=== PATIENT | female | born 1940 | race Caucasian/White ===

== ENCOUNTER 2018-11-28 13:39 | Emergency (ER) | payer MEDICARE, BC ==
[~2018-11-28] VITALS: Ht 152.4 cm; Wt 36.3 kg
[2018-11-28] MEDS ORDERED: SERT25TA PO (13:55)
[2018-11-28] MEDS ORDERED: LORA0.5T PO (13:55)
[2018-11-28] MEDS ORDERED: ROSU5TAB PO (13:55)
[2018-11-28] MEDS ORDERED: LEVO100T PO (13:55)
[2018-11-28] MEDS ORDERED: MEMA10TA PO (13:55)
--- NOTE | 2018-11-28 14:10 | NUR ---
A CALL FROM PT'S SON AND HE SPOKE WITH Patient starting to get agitated, restless walking to nurses station. orders to get a 1:1 sitter at this time. Salesperson [employer] called to be notified.
--- NOTE | 2018-11-28 14:15 | NUR ---
Security staff at bedside for 1:1 sitter.
--- NOTE | 2018-11-28 14:45 | NUR ---
Patient refusing to be on the monitor stating "nothing wrong with me" "I regret coming to the hospital". notified.
[2018-11-28 14:56] LABS: BASOPHILS # (AUTO) 0.1 K/uL (0.0-8.0); BASOPHILS % (AUTO) 1.2 % (0.0-2.0); EOSINOPHILS # (AUTO) 0.2 K/uL (0.0-0.7); EOSINOPHILS % (AUTO) 2.1 % (0.0-7.0); HEMATOCRIT 38.9 % (31.2-41.9); HEMOGLOBIN 12.8 g/dL (10.9-14.3); LYMPHOCYTES # (AUTO) 2.3 K/uL (20.0-40.0); LYMPHOCYTES % (AUTO) 26.9 % (20.5-51.5); MEAN CORPUSCULAR HEMOGLOBIN 29.4 uug (24.7-32.8); MEAN CORPUSCULAR HGB CONC 33 g/dL (32.3-35.6); MEAN CORPUSCULAR VOLUME 89.7 fL (75.5-95.3); MONOCYTES # (AUTO) 0.6 K/uL (2.0-10.0); MONOCYTES % (AUTO) 6.6 % (0.0-11.0); NEUTROPHILS # (AUTO) 5.5 K/uL (1.8-8.9); NEUTROPHILS % (AUTO) 63.2 % (38.5-71.5); PLATELET COUNT (AUTO) 262 K/uL (179-408); RED BLOOD CELL COUNT(AUTO) 4.34 MIL/uL (3.63-4.92); WHITE BLOOD COUNT (AUTO) 8.7 K/uL (3.8-11.8)
--- NOTE | 2018-11-28 15:08 | NUR ---
called pt son kayla cagle at [phone] per pt and er md request.
[2018-11-28 15:16] LABS: BILIRUBIN,DIRECT 0.1 mg/dL (0.0-0.2); BILIRUBIN,TOTAL 0.3 mg/dL (0.2-1.0); CREATININE 0.6 mg/dL (0.6-1.3); TOTAL PROTEIN, SERUM 6.8 g/dL (6.4-8.2)
[2018-11-28 15:19] LABS: POTASSIUM 3.6 mmol/L (3.5-5.1)
[2018-11-28 15:23] LABS: MAGNESIUM 2.2 mg/dL (1.8-2.4)
--- NOTE | 2018-11-28 15:37 | NUR ---
At this time patient refusing to provide urine sample, notified.
[2018-11-28 15:43] LABS: CREATINE KINASE, TOTAL 56 U/L (26-192); ETHANOL < 3 MG/DL (0-0); THYROID STIMULATING HORMONE 0.067 mIU/mL (0.358-3.740)
[2018-11-28 15:58] LABS: *BILIRUBIN,URIN NEGATIVE (NEGATIVE); *BLOOD, URINE NEGATIVE (NEGATIVE); *COLOR,URINE YELLOW (YELLOW); *KETONES,URINE TRACE (NEGATIVE); *UROBILINOGEN,URINE 0.2 E.U./dl (NORMAL); LEUKOCYTE ESTERASE ,URINE 1+ (NEGATIVE); NITRITE, URINE NEGATIVE (NEGATIVE); PH,URINE 6.5 (5.0-8.0); UGLUCOSE NEGATIVE (NEGATIVE)
[2018-11-28 16:10] LABS: *CLARITY,URINE SLIGHTLY HAZY (CLEAR)
[2018-11-28 16:11] LABS: *AMPHETAMINE, URINE NEGATIVE (NEGATIVE); *BARBITURATE, URINE NEGATIVE (NEGATIVE); *CANNABINOID, URINE NEGATIVE (NEGATIVE); *COCCAINE, URINE NEGATIVE (NEGATIVE); *OPIATE, URINE NEGATIVE (NEGATIVE); *PHENCYCLIDINE SCREEN,URINE NEGATIVE (NEGATIVE)
[2018-11-28 16:13] LABS: MUCUS,URINE MANY /LPF (0-FEW); RBC,URINE 0-3 /HPF (0-3); SQUAMOUS EPITHELIAL CELL,UR FEW /HPF (NONE SEEN)
--- NOTE | 2018-11-28 16:38 | NUR ---
at bedside convincing patient to have some to come and pick her up. Pt. refusing to call no one. and after speaking to they both agree that patient can leave on her own means. Pt. fully oriented at this time.
--- NOTE | 2018-11-28 16:40 | NUR ---
Alanis called on pt's behalf and pick arranged by ankit Carroll
--- NOTE | 2018-11-28 16:41 | NUR ---
DCD instructions and prescription given.
--- NOTE | 2018-11-28 16:47 | NUR ---
called taxi per pt request. eta 15 minutes
--- NOTE | 2018-11-28 16:49 | NUR ---
Patient left room AAOx4 refusing for another set of vitals signs steady gait awaited for taxi at waiting area.
== END 2018-11-28 17:00 | disposition home or self-care (01) ==
LOC: ER 13:39
DX: R42 Dizziness and giddiness (principal); N39.0 Urinary tract infection, site not specified; Z79.899 Other long term (current) drug therapy
CPT/HCPCS: 36415; 80048; 80076; 80307; 81000; 81001; 82550; 83605; 83735; 83880; 84443; 84484; 85025; 85730; 87040 ×2; 87086; 93005; 99284; G0480; 70030-TC; A4663

== ENCOUNTER 2019-10-10 11:03 | Inpatient (IN) | payer MEDICARE, BC ==
[~2019-10-10] VITALS: Ht 160 cm; Wt 45.4 kg
[~2019-10-10 11:03] MED LIST: LEVO100T PO; LORA0.5T PO; MEMA10TA PO; ROSU5TAB PO; SERT25TA PO
--- NOTE | 2019-10-10 11:10 | NUR ---
Dr. Salcedo at bedside for MSE
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
--- NOTE | 2019-10-10 11:10 | NUR ---
Speech is clear and able to make needs known
--- NOTE | 2019-10-10 11:16 | NUR ---
med recon was made base on the pt's med bottles bib paramedics.
--- NOTE | 2019-10-10 11:45 | NUR ---
Patient a little calm offered bedside commode. released restraints. Patient noted trying to take off BUE restraints. attempted to redirect patient, patient noted trying to bite and hit staff again. BUE restraints applied again. Patient able to move all digits freely without difficulty. cap refill <3 sec.
[2019-10-10 11:47] LABS: BASOPHILS % (AUTO) 0.5 % (0.0-2.0); EOSINOPHILS # (AUTO) 0.2 K/uL (0.0-0.7); EOSINOPHILS % (AUTO) 2.4 % (0.0-7.0); HEMATOCRIT 36.3 % (31.2-41.9); HEMOGLOBIN 12.1 g/dL (10.9-14.3); LYMPHOCYTES % (AUTO) 27.8 % (20.5-51.5); MEAN CORPUSCULAR HEMOGLOBIN 30.1 uug (24.7-32.8); MEAN CORPUSCULAR HGB CONC 33 g/dL (32.3-35.6); MEAN CORPUSCULAR VOLUME 90.3 fL (75.5-95.3); MONOCYTES # (AUTO) 0.6 K/uL (2.0-10.0); MONOCYTES % (AUTO) 8.5 % (0.0-11.0); NEUTROPHILS # (AUTO) 4.3 K/uL (1.8-8.9); NEUTROPHILS % (AUTO) 60.8 % (38.5-71.5); PLATELET COUNT (AUTO) 276 K/uL (179-408); RED BLOOD CELL COUNT(AUTO) 4.02 MIL/uL (3.63-4.92); WHITE BLOOD COUNT (AUTO) 7.1 K/uL (3.8-11.8)
[2019-10-10 12:07] LABS: *BILIRUBIN,URIN NEGATIVE (NEGATIVE); *BLOOD, URINE NEGATIVE (NEGATIVE); *CLARITY,URINE CLEAR (CLEAR); *COLOR,URINE YELLOW (YELLOW); *KETONES,URINE NEGATIVE (NEGATIVE); *UROBILINOGEN,URINE 0.2 E.U./dl (NORMAL); LEUKOCYTE ESTERASE ,URINE NEGATIVE (NEGATIVE); NITRITE, URINE NEGATIVE (NEGATIVE); UGLUCOSE NEGATIVE (NEGATIVE)
[2019-10-10 12:09] LABS: ALANINE AMINOTRANSFERASE 20 U/L (14-59); ALKALINE PHOSPHATASE 70 U/L (50-136); ASPARTATE AMINOTRANSFERASE 21 U/L (15-37); BILIRUBIN,DIRECT 0.1 mg/dL (0.0-0.2); BILIRUBIN,TOTAL 0.4 mg/dL (0.2-1.0); CARBON DIOXIDE 29 mmol/L (21-32); CHLORIDE 104 mmol/L (98-107); CREATININE 0.7 mg/dL (0.6-1.3); GLUCOSE 115 mg/dL (74-106); POTASSIUM 3.5 mmol/L (3.5-5.1); TOTAL PROTEIN, SERUM 6.8 g/dL (6.4-8.2); UREA NITROGEN, BLOOD 17 mg/dL (7-18)
[2019-10-10 12:19] LABS: ETHANOL < 3 MG/DL (0-0)
[2019-10-10 12:20] LABS: *AMPHETAMINE, URINE NEGATIVE (NEGATIVE); *BARBITURATE, URINE NEGATIVE (NEGATIVE); *CANNABINOID, URINE NEGATIVE (NEGATIVE); *COCCAINE, URINE NEGATIVE (NEGATIVE); *OPIATE, URINE NEGATIVE (NEGATIVE); *PHENCYCLIDINE SCREEN,URINE NEGATIVE (NEGATIVE)
--- NOTE | 2019-10-10 12:30 | NUR ---
Patient has been medically cleared by Dr. Salcedo
--- NOTE | 2019-10-10 12:35 | NUR ---
Called and spoke with Madi Roque. He stated that he will call intake
--- NOTE | 2019-10-10 13:25 | NUR ---
Released RUE restraint. no redness / swelling noted on wrist. patient with full ROM noted
--- NOTE | 2019-10-10 13:28 | NUR ---
Patient noted trying to untie LUE restraint. became verbally abusive to staff. noted trying to hit and bite staff when asked why shes attempting to take off LUE restraint. RUE restraint re applied. cap refill <3 sec.
--- NOTE | 2019-10-10 14:32 | NUR ---
watch / ID / Insurance card taken by patient's caregiver
[2019-10-10 16:00] VITALS: BP 186/107
[2019-10-10] MEDS ORDERED: TEMAZEPAM 7.5 MG CAPSULE PO PRN (16:15)
[2019-10-10] MEDS ORDERED: MAGNESIUM HYDROXIDE 30 ML LIQUID UDC PO PRN (16:15)
[2019-10-10] MEDS ORDERED: MAG HYDROX/AL HYDROX/SIMETH 30 ML LIQUID UDC PO PRN (16:15)
--- NOTE | 2019-10-10 18:47 | NUR ---
Admitted an 79years old female patient from ER, Pt. is AAO x 2, NO acute distress or SOB noted; with episodes of agitation and aggravation noted. NO acute distress. Denies pain up on assessment. Vital signs stable. Patient stated being depressed but denies suicidal ideations. Patient also noted getting angry and aggravated while explaining 72hr hold. Patient also noted going to other patient's rooms and getting agitated when told not to do so. Patient in room and resting at this time. Ate dinner well. Safety measures in place, bed in the lowest position for safety; monitored closely and will continue with care.
[2019-10-10 21:04] VITALS: BP 163/77
[2019-10-10] MEDS ORDERED: VALSARTAN 80 MG TABLET PO ONE (21:15)
[2019-10-10] MEDS: ATORVASTATIN 10 MG TABLET PO SCH (21:25)
[2019-10-10] MEDS ORDERED: VALSARTAN 80 MG TABLET ONE (22:01)
[2019-10-10 22:10] VITALS: BP_SYST 131; BP_SYST 142; BP_DIAS 72; BP_DIAS 77
[2019-10-10 23:00] VITALS: BP 129/70
[2019-10-11] MEDS: LEVOTHYROXINE SODIUM 125 MCG TABLET PO SCH ×2 (06:30→07:21)
--- NOTE | 2019-10-11 06:47 | NUR ---
REMAIN CALM AND COOPERATIVE WITH MEDS AND CARE. 20:00 PM PT'S BLOO0D PRESSURE WAS 163/77 Dr FELIPE NOTIFIED VIA PHONE X3. DID NOT RESPONSE UNTIL 2100 PM. ORDRER RECEIVED DIOVAN 80 MG PO X1. MEDICATION GIVEN FOR HTN. AND B/P AT 2300 PM 129/70. SLEPT 7 HRS THROUGH THE NIGHT.TOOK SHOWER THIS MORNING. CONTINUE PLAN OF CARE.
[2019-10-11 07:30] VITALS: BP 143/67
[2019-10-11 07:50] LABS: BILIRUBIN,TOTAL 0.4 mg/dL (0.2-1.0); CREATININE 0.8 mg/dL (0.6-1.3); POTASSIUM 3.7 mmol/L (3.5-5.1); TOTAL PROTEIN, SERUM 6.2 g/dL (6.4-8.2)
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
--- NOTE | 2019-10-11 11:53 | NUR ---
INITIAL DISCHARGE PLAN: Per esme Bowen ([phone]) he wishes for pt to return back home [address], [place] [address] under the care of pts esme Funk ([phone]). CRISTAL will help form a safe and proper discharge in collaboration with .
[2019-10-11] MEDS: VALSARTAN 80 MG TABLET PO SCH (12:20)
[2019-10-11] MEDS: LORAZEPAM 0.5 MG TABLET PO PRN ×2 (13:16→21:32)
[2019-10-11] MEDS: DIVALPROEX SPRINKLE 125 MG CAP.SPRINK PO SCH ×2 (14:32→17:18)
[2019-10-11] MEDS: risperiDONE 0.25 MG TABLET PO SCH ×2 (14:32→20:30)
[2019-10-11 15:32] VITALS: BP 166/88
[2019-10-11 20:00] VITALS: BP 165/99
[2019-10-11] MEDS: ATORVASTATIN 10 MG TABLET PO SCH (20:31)
--- NOTE | 2019-10-11 21:57 | NUR ---
GPS: PT A/OX2, RECEIVED WALKING PACING WITHIN STATION AND ROOM TO EXIT DOOR. UPON FACE TO FACE INTERVIEW NOTED PT VERY CONFUSED UNABLE TO STATE DAY OR WHERE SHE IS. PT SAID I AM VISITING A FRIEND!. PT IS DISORGANIZED THOUGHT PROCESSING. PT WAS FREQUENTLY REDIRECTED TO HER ROOM OR TV ROOM WHEN PT REQUESTING TO OPEN THE DOOR BECAUSE SHE WANT TO LEAVE.. PT ON CLOSE OBSERVATION PER RISK FOR AWOL, AND PT WAS RESTLESS AND PACING. PRN ATIVAN 0.5MG GIVEN PER STANDING ORDER AND MONITOR PT WITH NOTED EFFECTIVENESS. PT IS NOW SITTING DOWN AND RESTING. COOPERATIVE WITH ROUTINE MEDS. WILL CONTINUE MONITOR.
--- NOTE | 2019-10-11 22:08 | NUR ---
PT SON CALLED AND WAS ASKING ABOUT PT AND HER INTAKE HX. PT ATE 100% FROM DINNER AND SNACK WAS OFFERED. PT SON ALSO WANTED TO KNOWN WHY SHE IS GETTING PRN ATIVAN 0.5MG. EXPLAINED TO SON THAT IT IS A STANDING ORDER IF PT IS RESTLESS OR AGITATION.
[2019-10-12] MEDS: LEVOTHYROXINE SODIUM 125 MCG TABLET PO SCH (06:45)
[2019-10-12 07:30] VITALS: BP 135/69
[2019-10-12] MEDS: DIVALPROEX SPRINKLE 125 MG CAP.SPRINK PO SCH ×3 (09:15→17:55)
[2019-10-12] MEDS: risperiDONE 0.25 MG TABLET PO SCH ×2 (09:15→20:48)
[2019-10-12] MEDS: VALSARTAN 80 MG TABLET PO SCH (09:16)
[2019-10-12 16:00] VITALS: BP 113/62
[2019-10-12 20:20] VITALS: BP 127/88
[2019-10-12] MEDS: ATORVASTATIN 10 MG TABLET PO SCH (20:48)
[2019-10-12] MEDS: ACETAMINOPHEN 325 MG TABLET PO PRN (20:56)
--- NOTE | 2019-10-13 05:30 | NUR ---
GPS: PT WAS AWAKE AND RESTING IN BED QUITE. RESPONDED VERBALLY AND INTERACTED APPROPRIATELY. PT C/O MILD PAIN AND REQUESTED FOR TYLENOL. PRN WAS GIVEN AND PT WAS COOPERATIVE WITH MEDS. PT STILL NOTED WITH SOME EPISODE OF CONFUSION, BUT ABLE TO RE-DIRECT. NO OTHER BEHAVIOR NOTED. SLEPT WELL, CONTINUE MONITOR.
[2019-10-13] MEDS: LEVOTHYROXINE SODIUM 125 MCG TABLET PO SCH (06:49)
[2019-10-13 07:30] VITALS: BP 158/88
[2019-10-13] MEDS: DIVALPROEX SPRINKLE 125 MG CAP.SPRINK PO SCH ×3 (08:21→17:18)
[2019-10-13] MEDS: risperiDONE 0.25 MG TABLET PO SCH ×2 (08:21→20:32)
[2019-10-13] MEDS: VALSARTAN 80 MG TABLET PO SCH (08:25)
[2019-10-13] MEDS: ACETAMINOPHEN 325 MG TABLET PO PRN (10:03)
[2019-10-13 15:23] VITALS: BP 120/55
[2019-10-13] MEDS: BLOOD SUGAR DIAGNOSTIC 1 EACH STRIP VI SCH (17:18)
[2019-10-13] MEDS: ATORVASTATIN 10 MG TABLET PO SCH (20:24)
[2019-10-13 20:29] VITALS: BP 147/93
--- NOTE | 2019-10-14 03:10 | NUR ---
RECEIVED PATIENT IN HER ROOM. APPEARS MILDLY CONFUSED SHE SAID "AM VISITING A FRIEND WHO HAS GIVEN ME GOOD NEWS". PT IS DISORGANIZED AND SHE SELECTIVELY TOOK SOME OF HER MEDS. NOTED AWAKE FOR MOST OF THE NIGHT. PACING IN HER ROOM AND TALKING TO HER ROOM MATE.VISUAL CHECKS MADE ON HER. WILL CONTINUE TO MONITOR.
--- NOTE | 2019-10-14 06:24 | NUR ---
SLEPT FOR ABOUT 2:30HRS. HOWEVER TOOK A SHOWER.
[2019-10-14] MEDS: BLOOD SUGAR DIAGNOSTIC 1 EACH STRIP VI SCH ×2 (06:34→17:03)
[2019-10-14] MEDS: LEVOTHYROXINE SODIUM 125 MCG TABLET PO SCH (06:34)
[2019-10-14 07:30] VITALS: BP 177/89
[2019-10-14] MEDS: DIVALPROEX SPRINKLE 125 MG CAP.SPRINK PO SCH ×3 (09:28→17:07)
[2019-10-14] MEDS: VALSARTAN 80 MG TABLET PO SCH (09:28)
[2019-10-14] MEDS: risperiDONE 0.25 MG TABLET PO SCH ×2 (09:28→13:07)
[2019-10-14 10:00] VITALS: BP 129/84
[2019-10-14] MEDS: LORAZEPAM 0.5 MG TABLET PO PRN ×2 (13:06→21:47)
--- NOTE | 2019-10-14 15:00 | NUR ---
Received a phone call from patient's son, Dave. He was upset, saying that he is an ER doctor and knows what the standards of care are and that he fells that he is not getting the answers he wants. For a long period of time pt had complaints about most staff, including nurses, the doctor, and the social welfare clerk. Pt did not asked any specific questions even when he was asked what questions he has and how he can be help. Pt was saying that he was expecting that the primary nurse would call him with update, even though no such policy is in place. Dave preceded to complain why did the nurse not call him as she was supposed to. Pt was condescending and accusatory, demanding to talk to the coffee supervisor and refusing to talk to the nurse, saying that he wants to talk to someone "above." Pt's son's left his phone number was given to the coffee supervisor, Vincent Garnica, per his request.
[2019-10-14 15:47] VITALS: BP 174/110
--- NOTE | 2019-10-14 16:04 | NUR ---
FAMILY CONTACT: CRISTAL contacted pts son Jessi ([phone]) to provide deescalation. Nurse reported to CRISTAL that pts son was very angry and hostile and threatening to report the hospital due to their lack of communication. Son reported to SW that over the weekend none of the nursing staff was able to provide him with updates on pts behavior and legal status. He states that all the nurses have been rude and horrible and that the MD was also hostile and rude with him. Son states that he will be reporting the staff to the nursing supervisor order takers and or hospital welfare administrator and states he wishes for MD to speak to him regarding pts treatment. SW provided son with an update on pts progress and medications and also legal status. Son was appreciative with CRISTAL for providing him with clinical information. Addendum: 10/14/19 at 1620 by CONNOR BEE Son also stated that pt is on a special cultural based diet and states pt is unable to eat meat, dairy, or fried foods.
[2019-10-14] MEDS ORDERED: VALSARTAN 80 MG TABLET PO ONE (17:30)
[2019-10-14 20:00] VITALS: BP 163/108
[2019-10-14] MEDS: ATORVASTATIN 10 MG TABLET PO SCH (21:47)
[2019-10-14] MEDS: ACETAMINOPHEN 325 MG TABLET PO PRN (21:47)
[2019-10-14] MEDS: risperiDONE 0.5 MG TABLET PO SCH (21:48)
[2019-10-14 22:00] VITALS: BP 142/97
--- NOTE | 2019-10-15 00:26 | NUR ---
RECEIVED PATIENT PACING UP AND DOWN THE HALLWAY AND OCCASIONALLY ENTERING INTO OTHER ROOMS AND BEING GENERALLY NOSY.SHE LATER STARTED CRYING SAYING"I HAVE LEFT MY HOUSE OPEN AND UNATTENDED. IF I DO NOT SPEAK TO MY SON I WILL HAVE NOTHING LEFT WHEN I GO BACK". I GOT HER A PHONE TO TALK TO HER SON BUT SHE ENDED UP LEAVING A MESSAGE.REDIRECTION FAILED WHEN SHE WANTED TO MASSAGE ANOTHER PATIENT"S LEGS. TAB ATIVAN O.5MG WAS GIVEN WITH GOOD EFFECT. VISUAL CHECKS MADE ON HER FOR SAFETY. WILL CONTINUE TO MONITOR.
[2019-10-15] MEDS: LEVOTHYROXINE SODIUM 125 MCG TABLET PO SCH (06:41)
[2019-10-15] MEDS: BLOOD SUGAR DIAGNOSTIC 1 EACH STRIP VI SCH (06:42)
--- NOTE | 2019-10-15 06:45 | NUR ---
SLEPT FOR 7HOURS
[2019-10-15 07:48] VITALS: BP 154/78
[2019-10-15] MEDS: DIVALPROEX SPRINKLE 125 MG CAP.SPRINK PO SCH ×3 (08:14→16:03)
[2019-10-15] MEDS: risperiDONE 0.25 MG TABLET PO SCH ×2 (08:14→12:37)
[2019-10-15] MEDS: VALSARTAN 160 MG TABLET PO SCH (08:15)
[2019-10-15] MEDS: BENZTROPINE MESYLATE 0.5 MG TABLET PO SCH ×2 (12:43→16:03)
[2019-10-15 15:13] VITALS: BP 142/77
[2019-10-15 20:29] VITALS: BP 131/67
[2019-10-15] MEDS: risperiDONE 0.5 MG TABLET PO SCH (21:04)
[2019-10-15] MEDS: ATORVASTATIN 10 MG TABLET PO SCH (21:04)
[2019-10-16] MEDS: LEVOTHYROXINE SODIUM 125 MCG TABLET PO SCH (06:32)
[2019-10-16 07:30] VITALS: BP 112/73
[2019-10-16] MEDS: DIVALPROEX SPRINKLE 125 MG CAP.SPRINK PO SCH ×3 (08:58→17:15)
[2019-10-16] MEDS: risperiDONE 0.25 MG TABLET PO SCH ×2 (08:58→12:35)
[2019-10-16] MEDS: BENZTROPINE MESYLATE 0.5 MG TABLET PO SCH ×2 (08:58→17:15)
[2019-10-16] MEDS: VALSARTAN 160 MG TABLET PO SCH (09:00)
--- NOTE | 2019-10-16 09:06 | NUR ---
B/P rechecked B/P- 108/ , Diovan 160 mg po not adminitered due to low B/P.
--- NOTE | 2019-10-16 14:37 | NUR ---
Social Work Note: Patient continues to be paranoid and is constantly asking this typewriter assembly and parts inspector where her purse and is accusing others have her purse. This typewriter assembly and parts inspector assured that there is no purse here. Patient was unable to understand and needs constant reassurance.
[2019-10-16 16:04] VITALS: BP 117/56
[2019-10-16] MEDS: LORAZEPAM 0.5 MG TABLET PO PRN (19:53)
[2019-10-16 20:03] VITALS: BP 128/90
[2019-10-16] MEDS: ATORVASTATIN 10 MG TABLET PO SCH (20:33)
[2019-10-16] MEDS: risperiDONE 0.5 MG TABLET PO SCH (20:33)
[2019-10-17] MEDS: LEVOTHYROXINE SODIUM 125 MCG TABLET PO SCH (06:31)
[2019-10-17 07:30] VITALS: BP 136/79
[2019-10-17] MEDS: DIVALPROEX SPRINKLE 125 MG CAP.SPRINK PO SCH ×3 (08:39→17:23)
[2019-10-17] MEDS: risperiDONE 0.25 MG TABLET PO SCH ×2 (08:39→12:43)
[2019-10-17] MEDS: VALSARTAN 160 MG TABLET PO SCH (08:39)
[2019-10-17] MEDS: BENZTROPINE MESYLATE 0.5 MG TABLET PO SCH ×2 (08:39→17:23)
[2019-10-17] MEDS: LORAZEPAM 0.5 MG TABLET PO PRN (15:36)
[2019-10-17 16:31] VITALS: BP 119/80
--- NOTE | 2019-10-17 17:35 | NUR ---
Gps/Production Honing Machine Operator- As Any Commodity Sales Deliverer passes by patient room, found patient lying infront of the bathroom, with the bathroom door off from the wall. Patient's pant wet , per patient and roommate she loss her balance as she stand up, tried to grab the door , but came off. Assisted patient to stant up 2 staff assisting, walked patient , denies pain , still wants to go back to the bathroom to complete her voiding. No bruising or injury noted. B/P 114/60 HR 76, 02 sat 96%, no pain temp. 97.8 oral resp. 18. no distress. Any Commodity Sales Deliverer to call Dr Guevara to informed of the incident.
--- NOTE | 2019-10-17 20:30 | NUR ---
GPS/NSG As endorsed by a.m. shift CT scan taken, 1:1 sitter ordered for patient safety. Patient ambulates with a fairly steady gait. Will continue to monitor as well as continue to provide a safe environment.
--- NOTE | 2019-10-17 20:45 | NUR ---
Received patient in the hallway. she is noted A/O x 2. she is note evasive. mood is low affect is blunted. pt is poor historian. She continue on 1:1 supervision S/P fall. V/S WNL at this time. CT scan of the brain results were received: No intracranial hemorrhage, or skull fracture was found. right parietal scalp swelling was noted. Patient denies, headache, pain or discomfort. No changes in LOC is noted. Pt is reassured for her safety. safety and fall precaution in place. will continue with 1:1 monitor.
[2019-10-17 20:54] VITALS: BP 141/84
[2019-10-17] MEDS: risperiDONE 0.5 MG TABLET PO SCH (21:02)
[2019-10-17] MEDS: ATORVASTATIN 10 MG TABLET PO SCH (21:02)
[2019-10-18] MEDS: LEVOTHYROXINE SODIUM 125 MCG TABLET PO SCH (07:00)
[2019-10-18 07:30] VITALS: BP 143/70
[2019-10-18] MEDS: BENZTROPINE MESYLATE 0.5 MG TABLET PO SCH ×2 (08:16→17:42)
[2019-10-18] MEDS: risperiDONE 0.25 MG TABLET PO SCH (08:16)
[2019-10-18] MEDS: DIVALPROEX SPRINKLE 125 MG CAP.SPRINK PO SCH ×2 (08:16→21:15)
[2019-10-18] MEDS: VALSARTAN 160 MG TABLET PO SCH (08:17)
--- NOTE | 2019-10-18 14:44 | NUR ---
CRISTAL Individual Therapy Note: SW met with patient for brief individual counseling to address patient's manic mood. SW provided reality orientation and attempted to explore patient's feelings and positive problem solving. Patient presents disorganized and disoriented. Patient presents confused and does not recall the events that led to her hospitalization. Patient is asking random questions, and does not remember her recent fall.
--- NOTE | 2019-10-18 15:00 | NUR ---
Gps/Continuous Pillowcase Cutter-Patient got out of bed, bed alarm went off, observed patient walked to the bathroom, voided adequately , gait fairly steady, went back to bed stand by, denies any pain no discomfort, pt. does not remember her falling yesterday .Continue to monitor needs and safety, reviewed to patient , emphasized. bed alarm on.
[2019-10-18 16:00] VITALS: BP 93/53
[2019-10-18 20:00] VITALS: BP 101/68
[2019-10-18] MEDS: risperiDONE 0.5 MG TABLET PO SCH (21:15)
[2019-10-18] MEDS: ATORVASTATIN 10 MG TABLET PO SCH (21:16)
--- NOTE | 2019-10-19 05:38 | NUR ---
GPS: PT RECEIVED IN BED, A/O X2. DENIED PAIN OR DISCOMFORT. PT ABLE TO VERBALLY COMMUNICATE NEEDS BUT CONFUSE. PT IS RESTLESS AND WONDER WITHIN ROOM TRYING TO FIX THINGS IN THE ROOM. PT SAID SOMETHING IS WRONG WITH THE BED AND C/O BED ALARM KEEP GOING OFF EVEN WHEN SHE IS NOT MOVING. PT BECAME ANGRY AND REQUESTED TO TURN OFF ALARM. MADE PT AWARE OF RISK AND BENEFIT. CONTINUE MONITOR.
[2019-10-19] MEDS: LEVOTHYROXINE SODIUM 125 MCG TABLET PO SCH (07:20)
[2019-10-19 08:25] VITALS: BP 97/64
[2019-10-19] MEDS: BENZTROPINE MESYLATE 0.5 MG TABLET PO SCH ×2 (08:29→16:14)
[2019-10-19] MEDS: risperiDONE 0.25 MG TABLET PO SCH (08:29)
[2019-10-19] MEDS: DIVALPROEX SPRINKLE 125 MG CAP.SPRINK PO SCH ×2 (08:29→20:21)
[2019-10-19] MEDS: VALSARTAN 160 MG TABLET PO SCH (08:30)
[2019-10-19] MEDS: METFORMIN HCL 500 MG TABLET PO SCH ×2 (11:15→17:18)
[2019-10-19] MEDS: BLOOD SUGAR DIAGNOSTIC 1 EACH STRIP VI SCH ×3 (11:30→20:22)
[2019-10-19 16:09] VITALS: BP 105/58
[2019-10-19 20:10] VITALS: BP 117/81
[2019-10-19] MEDS: ATORVASTATIN 10 MG TABLET PO SCH (20:21)
[2019-10-19] MEDS: risperiDONE 0.5 MG TABLET PO SCH (20:22)
--- NOTE | 2019-10-19 21:55 | NUR ---
GPS: Received patient in room, awake and arguing with the roommate about the lights in the room. This patient wants them on during the night, which bothers the roommate. Patient refused to take PM medications at first , stating " My son is an patent attorney and he said he will be here at 9am to pick me up. He said I do not have to take any medications." Sharepoint Analyst provided encouragement and education to the patient to no avail. A different nurse offered patient the medications a short time later, and patient took them without difficulty. Patient appears to be paranoid and tries to keep door shut and blocked with bedside table. Frequent rounding done and door kept open as much as possible. Monitoring patient for safety and medication compliance. Reassurance provided as well as reorientation to the environment and plan of care.
--- NOTE | 2019-10-20 05:57 | NUR ---
Patient slept 4:15 LAST NIGHT. Patient was up and down in the room, turning lights on and off, keeping roommate awake. During the night patient came out in the vargas asking " Where is my mother"? Reorientation and redirection provided. Assisted patient in shower. Monitoring patient for safety at this time.
[2019-10-20] MEDS: LEVOTHYROXINE SODIUM 125 MCG TABLET PO SCH (06:22)
[2019-10-20] MEDS: BLOOD SUGAR DIAGNOSTIC 1 EACH STRIP VI SCH ×5 (06:22→20:26)
[2019-10-20 07:30] VITALS: BP 147/76
[2019-10-20] MEDS: METFORMIN HCL 500 MG TABLET PO SCH ×2 (08:00→17:02)
[2019-10-20] MEDS: BENZTROPINE MESYLATE 0.5 MG TABLET PO SCH ×2 (08:21→16:37)
[2019-10-20] MEDS: DIVALPROEX SPRINKLE 125 MG CAP.SPRINK PO SCH ×2 (08:22→20:16)
[2019-10-20] MEDS: risperiDONE 0.25 MG TABLET PO SCH (08:22)
[2019-10-20] MEDS: VALSARTAN 160 MG TABLET PO SCH (08:22)
[2019-10-20 16:00] VITALS: BP 122/77
[2019-10-20 20:00] VITALS: BP 133/77
[2019-10-20] MEDS: ATORVASTATIN 10 MG TABLET PO SCH (20:16)
[2019-10-20] MEDS: risperiDONE 0.5 MG TABLET PO SCH (20:17)
[2019-10-21] MEDS: LORAZEPAM 0.5 MG TABLET PO PRN (00:02)
--- NOTE | 2019-10-21 03:53 | NUR ---
GPS: Patient was up most of the night, confused and asking the same questions over and over. Multiple attempts made by staff to reorient patient to situation, redirect patient and distract patient when possible. Patient was up at the nurses station and provided a tacos chair for comfort. Hiv Prevention Specialist noted patients anxiety increasing and provided a PRN medication. This helped and soon patient was relaxed and calm. Staff monitoring her closely for safety at this time. No acute distress noted.
--- NOTE | 2019-10-21 06:14 | NUR ---
Patient only slept 3 hours last night but seems to be calm and is in bed resting. No anxiety or worry noted at this time.
[2019-10-21] MEDS: LEVOTHYROXINE SODIUM 125 MCG TABLET PO SCH (06:18)
[2019-10-21] MEDS: BLOOD SUGAR DIAGNOSTIC 1 EACH STRIP VI SCH ×2 (06:18→11:30)
[2019-10-21 07:30] VITALS: BP 135/80
[2019-10-21] MEDS: METFORMIN HCL 500 MG TABLET PO SCH (08:00)
[2019-10-21] MEDS: DIVALPROEX SPRINKLE 125 MG CAP.SPRINK PO SCH (08:31)
[2019-10-21] MEDS: BENZTROPINE MESYLATE 0.5 MG TABLET PO SCH (08:31)
[2019-10-21 08:32] VITALS: BP 135/80
[2019-10-21] MEDS: risperiDONE 0.25 MG TABLET PO SCH (08:32)
[2019-10-21] MEDS: VALSARTAN 160 MG TABLET PO SCH (08:32)
--- NOTE | 2019-10-21 11:36 | NUR ---
Discharge Note: Patient will be discharged back home [address] [place] [address]. Patients caregiver, Ashwini ([phone]) will be providing transportation for the patient today at 2pm back home. Patients son, Jessi ([phone]) and Blessing ([phone]) are both aware and agreeable with discharge plan. Patient is aware and agreeable with discharge plan. Patient presents with appropriate mood and congruent affect. Patient denies suicidal or homicidal ideation. Patient is referred to [address] [address] ([phone]) for primary care physician follow ups. Patient will be following up with primary care physician Dr. Hays on Monday October 28, 2019 at 2pm via telehealth and psychiatrist Dr. Guerrero November 01, 2019 1pm via telehealth. Patient is also referred to [facility], [facility]. ( ).
--- NOTE | 2019-10-21 14:00 | NUR ---
GPS: Nursing Notes: Discharge Notes: Patient is awake and responding to her name, cooperative with nursing care, compliant with her medications, following staff directions, denies any SI/HI, denies any AH/VH, denies any pain or discomfort, denies any SOB, discharge to home with her son Blessing and Jessi at [address] [place] [address], picked up by caregiver Ashwini , took all her belongings with her, instructions and prescriptions given to caregiver, transported home via private vehicle with caregiver. Patient is referred to [address] [address] ([phone]) for primary care physician follow ups. Patient will be following up with primary care physician Dr. Hays on Monday October 28, 2019 at 2pm via telehealth and psychiatrist Dr. Guerrero November 01, 2019 1pm via telehealth. Patient is also referred to [facility], [facility]. ( ).
== END 2019-10-21 14:00 | disposition home or self-care (01) | DRG 885 ==
LOC: ER 11:03 → GPS 15:51
PROVIDERS: ADMIT Psychiatry & Neurology Psychosomatic Medicine; ATTEND Internal Medicine
DX: F31.64 Bipolar disorder, current episode mixed, severe, with psychotic features (principal); F01.50 Vascular dementia, unspecified severity, without behavioral disturbance, psychotic disturbance, mood disturbance, and anxiety; E03.9 Hypothyroidism, unspecified; E78.5 Hyperlipidemia, unspecified; I10 Essential (primary) hypertension; E11.9 Type 2 diabetes mellitus without complications; F29 Unspecified psychosis not due to a substance or known physiological condition
CPT/HCPCS: 36415; 70450; 71045; 80307; 84443; 85025; 93005; A4663; C1758; G0480

== ENCOUNTER 2019-11-24 22:06 | Emergency (ER) | payer MEDICARE, BC ==
[~2019-11-24] VITALS: Ht 152.4 cm; Wt 54.4 kg
[~2019-11-24 22:06] MED LIST changes: -LORA0.5T PO; -MEMA10TA PO; -SERT25TA PO
[2019-11-24] MEDS ORDERED: [UNRECOGNIZED DRUG - REMARK] (22:20)
[2019-11-24] MEDS ORDERED: [UNRECOGNIZED DRUG - REMARK] (22:20)
[2019-11-24] MEDS ORDERED: [UNRECOGNIZED DRUG - REMARK] (22:20)
[2019-11-24 22:49] LABS: BASOPHILS # (AUTO) 0.1 K/uL (0.0-8.0); EOSINOPHILS # (AUTO) 0.2 K/uL (0.0-0.7); HEMOGLOBIN 12.2 g/dL (10.9-14.3); LYMPHOCYTES # (AUTO) 2.5 K/uL (20.0-40.0); LYMPHOCYTES % (AUTO) 35.1 % (20.5-51.5); MEAN CORPUSCULAR HEMOGLOBIN 30.1 uug (24.7-32.8); MEAN CORPUSCULAR HGB CONC 33 g/dL (32.3-35.6); MEAN CORPUSCULAR VOLUME 91.1 fL (75.5-95.3); MONOCYTES # (AUTO) 0.9 K/uL (2.0-10.0); MONOCYTES % (AUTO) 13.3 % (0.0-11.0); NEUTROPHILS # (AUTO) 3.4 K/uL (1.8-8.9); NEUTROPHILS % (AUTO) 47.6 % (38.5-71.5); PLATELET COUNT (AUTO) 256 K/uL (179-408); RED BLOOD CELL COUNT(AUTO) 4.06 MIL/uL (3.63-4.92); WHITE BLOOD COUNT (AUTO) 7.1 K/uL (3.8-11.8)
[2019-11-24 22:56] LABS: *BILIRUBIN,URIN NEGATIVE (NEGATIVE); *BLOOD, URINE NEGATIVE (NEGATIVE); *CLARITY,URINE CLEAR (CLEAR); *COLOR,URINE YELLOW (YELLOW); *KETONES,URINE 1+ (NEGATIVE); *UROBILINOGEN,URINE 0.2 E.U./dl (NORMAL); LEUKOCYTE ESTERASE ,URINE 1+ (NEGATIVE); NITRITE, URINE NEGATIVE (NEGATIVE); UGLUCOSE NEGATIVE (NEGATIVE)
[2019-11-24 22:57] LABS: ALANINE AMINOTRANSFERASE 13 U/L (14-59); ALKALINE PHOSPHATASE 74 U/L (50-136); ASPARTATE AMINOTRANSFERASE 11 U/L (15-37); BILIRUBIN,DIRECT 0.1 mg/dL (0.0-0.2); BILIRUBIN,TOTAL 0.2 mg/dL (0.2-1.0); CARBON DIOXIDE 27 mmol/L (21-32); CHLORIDE 106 mmol/L (98-107); CREATINE KINASE, TOTAL 36 U/L (26-192); CREATININE 0.8 mg/dL (0.6-1.3); GLUCOSE 136 mg/dL (74-106); POTASSIUM 3.9 mmol/L (3.5-5.1); TOTAL PROTEIN, SERUM 6.3 g/dL (6.4-8.2); UREA NITROGEN, BLOOD 20 mg/dL (7-18)
[2019-11-24 23:00] LABS: ACETAMINOPHEN < 2.0 ug/mL (10-30)
[2019-11-24 23:02] LABS: ETHANOL < 3 MG/DL (0-0)
[2019-11-24 23:05] LABS: *AMPHETAMINE, URINE NEGATIVE (NEGATIVE); *BARBITURATE, URINE NEGATIVE (NEGATIVE); *CANNABINOID, URINE NEGATIVE (NEGATIVE); *COCCAINE, URINE NEGATIVE (NEGATIVE); *OPIATE, URINE NEGATIVE (NEGATIVE); *PHENCYCLIDINE SCREEN,URINE NEGATIVE (NEGATIVE)
[2019-11-24 23:12] LABS: BACTERIA,URINE NONE SEEN /HPF (NONE SEEN); RBC,URINE 0-3 /HPF (0-3)
[2019-11-25 02:27] VITALS: BP 155/91
== END 2019-11-25 02:15 | disposition home or self-care (01) ==
LOC: ER 22:08
DX: R45.1 Restlessness and agitation (principal); N39.0 Urinary tract infection, site not specified; R94.31 Abnormal electrocardiogram [ECG] [EKG]; E03.9 Hypothyroidism, unspecified; Z79.890 Hormone replacement therapy; F31.9 Bipolar disorder, unspecified; F03.90 Unspecified dementia, unspecified severity, without behavioral disturbance, psychotic disturbance, mood disturbance, and anxiety; Z20.828 Contact with and (suspected) exposure to other viral communicable diseases
CPT/HCPCS: 36415; 80048; 80076; 80164; 80307 ×2; 80329; 81001; 82550; 84443; 85025; 87086; 87426; 93005; 99285; G0480